=== PATIENT | female | born 1945 | race Caucasian/White ===

== ENCOUNTER 2017-03-24 07:41 | Day surgery (SDC) | payer MEDICARE, BC ==
[~2017-03-24 07:41] MED LIST: Propofol 200 MG/20 ML SDV ONE; fentaNYL 100 MCG/2 ML SDV ONE
[2017-03-24] MEDS ORDERED: Dextrose 5%-Lactated Ringers 1,000 ML IV SCH (08:30)
[2017-03-24] MEDS ORDERED: Ampicillin/Sulbactam Na 3 GM in Sodium Chloride 0.9% 100 ML IV ONE (09:30)
[2017-03-24 13:14] VITALS: BP 133/71
--- NOTE | 2017-03-30 12:54 | OR ---
DATE OF PROCEDURE: 03/24/2017 PREOPERATIVE DIAGNOSIS: History of colonic polyps. POSTOPERATIVE DIAGNOSIS: Single recurrent rectal polyp. OPERATION: Flexible colonoscopy with polypectomy by snare technique ([id number]). ANESTHESIA: IV sedation. INDICATION FOR PROCEDURE: A 71-year-old presenting for followup colonoscopy. She had a previous history of having had adenomatous colon polyps removed. Plan is to proceed with the colonoscopy with biopsies and/or polypectomy as indicated. Potential risks including bleeding and perforation were discussed, and the patient wishes to proceed. DESCRIPTION OF PROCEDURE: The patient was taken to the operating room and placed in a left lateral decubitus position. IV sedation was administered, after which the initial digital rectal exam was performed and it was unremarkable. Colonoscope was then passed into the rectum with retroflexion view revealed an uncomplicated hemorrhoidal columns. The scope was then eventually passed to the level of the cecum. The prep was fairly good with there only being a small amount of liquid stool present. The patient had no diverticula, no areas of colitis. The patient had one single fairly small polyp measuring about 3 mm located at 10 cm from the dentate line. This was encircled at its base with the snare and removed via the snare cautery technique and specimen for histological evaluation. Good hemostasis was noted at the polypectomy site. The procedure was then concluded. The patient was taken to the recovery room in satisfactory condition. There were no evident complications. The patient will be contacted regarding pathology report. If this is adenomatous polyp, a repeat colonoscopy probably warranted in about 2 years. Michael Nuñez MD /[id number]
== END 2017-03-24 11:50 | disposition home or self-care (01) ==
LOC: JP.SDS 07:41
PROVIDERS: ATTEND Surgery
DX: Z12.11 Encounter for screening for malignant neoplasm of colon (principal); D12.6 Benign neoplasm of colon, unspecified; K64.9 Unspecified hemorrhoids; Z86.010 Personal history of colon polyps
CPT/HCPCS: 45385; 88305; J0295; J2704; J3010; J7030; J7042

== ENCOUNTER 2019-03-22 07:07 | Day surgery (SDC) | payer MEDICARE, BC ==
[2019-03-22] MEDS ORDERED: Meropenem 500 MG in Sodium Chloride 0.9% 50 ML IV ONE (07:45)
[2019-03-22] MEDS ORDERED: Dextrose 5%-Lactated Ringers 1,000 ML IV SCH (07:45)
[2019-03-22] MEDS ORDERED: Propofol 200 MG/20 ML SDV ONE (09:04)
[2019-03-22] MEDS ORDERED: fentaNYL 100 MCG/2 ML SDV ONE (09:05)
[2019-03-22] MEDS ORDERED: Midazolam 1 MG/ML 2 ML SDV ONE (09:05)
[2019-03-22 11:01] VITALS: BP 136/84; PULSE 60
--- NOTE | 2019-03-25 00:46 | OR ---
DATE OF PROCEDURE: 03/22/2019 SURGEON: Michael Nuñez MD PREOPERATIVE DIAGNOSIS: History of colon polyps. POSTOPERATIVE DIAGNOSES: 1. Normal colonic examination. 2. History of colon polyps. OPERATIVE PROCEDURE: Flexible colonoscopy. ANESTHESIA: IV sedation. INDICATION FOR PROCEDURE: A 73-year-old female presenting for followup colonoscopy. She has history of colon polyps removed in the past. Plan is to proceed with a colonoscopy with biopsies and polypectomy as indicated. Potential risks including bleeding and perforation were discussed, and the patient wishes to proceed. DETAILS OF PROCEDURE: The patient was taken to the operating room and placed in a left lateral decubitus position. IV sedation was administered, after which the initial digital rectal exam was performed and was unremarkable. Colonoscope was then passed into the rectum with retroflexion revealing uncomplicated hemorrhoidal columns. The scope was eventually passed to the level of the cecum. At that level, no abnormalities were noted. There were no areas of colitis or diverticular disease, and no polyps or other signs of neoplasia. Scope was then withdrawn. The above findings reconfirmed, and the procedure concluded. The recommendation would be to repeat the colonoscopy in 5 years given the history of colon polyps. Michael Nuñez MD /[id number]
== END 2019-03-22 11:05 | disposition home or self-care (01) ==
LOC: JP.SDS 07:07
PROVIDERS: ATTEND Surgery
DX: Z12.11 Encounter for screening for malignant neoplasm of colon (principal); K64.9 Unspecified hemorrhoids; Z86.010 Personal history of colon polyps
CPT/HCPCS: G0121; J2250; J2704; J3010; J7042

== ENCOUNTER 2021-06-25 08:40 | Emergency (ER) | payer MEDICARE, BC ==
[2021-06-25] MEDS ORDERED: HYDROmorphone 1 MG/ML Syringe IM ONE (08:51)
--- NOTE | 2021-06-25 08:56 | EDM.PDOC ---
ED HPI GENERAL MEDICAL PROBLEM - General Chief Complaint: Upper Extremity Injury/Pain Stated Complaint: FELL, INJURED LT ARM Time Seen by Provider: 06/25/21 08:54 Source of Information: Reports: Patient, Family History Limitations: Reports: No Limitations - History of Present Illness INITIAL COMMENTS - FREE TEXT/NARRATIVE: 75-year-old female presents emergency department day complaint of left wrist pain, she injured herself last night when she missed a step fell forward on an outstretched hand unfortunately she could not come in last night because she did not have transportation so she presents this morning. She does have a significant amount of deformity as well as swelling over the area. She did not hit her head no loss of consciousness Left Wrist Pain Score (Numeric/FACES): 9 - Related Data Allergies Allergy/AdvReac Type Severity Reaction Status Date / Time No Known Allergies Allergy Verified 06/25/21 08:55 Home Meds: Home Meds Aspirin [Ecotrin] 81 mg PO DAILY 11/21/15 [History] Calcium Carbonate [Calcium] 600 mg PO BID 11/21/15 [History] Cholecalciferol (Vitamin D3) [Vitamin D3] 1,000 unit PO DAILY 11/21/15 [History] Cyclobenzaprine [Flexeril] 10 mg PO BEDTIME PRN 11/21/15 [History] Multivitamin [Multi-Day Vitamins] 1 each PO DAILY 11/21/15 [History] Venlafaxine [Effexor] 75 mg PO BIDMEALS 11/21/15 [History] traZODone 200 mg PO BEDTIME 11/21/15 [History] [place]-3 Fatty Acids/Fish Oil [Fish Oil 1,200 mg Softgel] 1,200 mg PO BID 03/19/17 [History] hydroCHLOROthiazide [Microzide] 12.5 mg PO DAILY 03/21/19 [History] Past Medical History HEENT History: Reports: Cataract, Hard of Hearing Gastrointestinal History: Reports: Colon Polyp, GERD SPECIAL POLICE History: Reports: Endometriosis, Musculoskeletal History: Reports: Arthritis, Back Pain, Chronic, Fibromyalgia, Osteoarthritis, Other (See Below) Other Musculoskeletal History: degenerative disc disease Neurological History: Reports: Other (See Below) Other Neuro History: spondilithias Psychiatric History: Reports: Anxiety, Depression Endocrine/Metabolic History: Reports: Obesity/BMI 30+ Hematologic History: Reports: Blood Transfusion(s), Other (See Below) Other Hematologic History: factor 5 Oncologic (Cancer) History: Reports: Breast Dermatologic History: Reports: Melanoma - Infectious Disease History Infectious Disease History: Reports: Chicken Pox, Measles, Mumps - Past Surgical History GI Surgical History: Reports: Appendectomy, Colonoscopy Female Surgical History: Reports: Breast Biopsy, Breast Reconstruction, Hysterectomy, Mastectomy, Salpingo-Oophorectomy Endocrine Surgical History: Reports: None Neurological Surgical History: Reports: Laminectomy, Spinal Fusion, Other (See Below) Musculoskeletal Surgical History: Reports: Knee Replacement, Shoulder Replacement, Shoulder Surgery Oncologic Surgical History: Reports: Biopsy of Breast, Mastectomy Dermatological Surgical History: Reports: Skin Biopsy Social & Family History - Family History Oncologic: Reports: Brain, Breast, Colon, Ovarian - Caffeine Use Caffeine Use: Reports: Coffee Review of Systems - Review of Systems Review Of Systems: See Below Musculoskeletal: Reports: Hand Pain Skin: Reports: Bruising Neurological: Reports: No Symptoms ED EXAM, GENERAL - Physical Exam Exam: See Below Free Text/Narrative:: Examination of the left wrist I do appreciate some deformity, there is edema and bruising over the wrist she has limited range of motion of the digits secondary to pain ,the radial pulse is difficult to appreciate due to swelling. Exam Limited By: No Limitations General Appearance: Alert, WD/WN, No Apparent Distress Respiratory/Chest: No Respiratory Distress ED TRAUMA EXTREMITY PROCEDURES - Joint Reduction Left Wrist Sedation: Conscious Sedation Pre-Procedure NV Status: Normal Post-Procedure NV Status: Normal Technique: Traction/Counter Traction Number of Attempts: 1 Post-Reduction Imaging: Completely Reduced, Fracture Seen Joint Reduction Complications: No - Splinting Left Upper Extremity Pre-Procedure NV Status: Normal Post-Procedure NV Status: Normal (This is a) Splint Material: Fiberglass Splint Design: Sugar Tong Applied & Form Fitted By: Provider, Nurse, Tech Provider Post-Splint Application NV Check: NV Status Normal, Good Position Complications: No Course - Vital Signs Last Recorded V/S: Last Vital Signs Temp 97.8 F 06/25/21 08:52 Pulse 80 06/25/21 10:49 Resp 12 06/25/21 10:49 BP 168/85 H 06/25/21 10:49 Pulse Ox 93 L 06/25/21 09:48 - Orders/Labs/Meds Orders: Active Orders 24 hr Category Date Time Status Fluoro Up To 1Hr [CR] Stat Exams 06/25/21 10:09 Ordered Sodium Chloride 0.9% [Normal Saline] 1,000 ml Med 06/25/21 10:15 Active IV ASDIRECTED Medication Orders Sodium Chloride (Normal Saline) 1,000 mls @ 125 mls/hr IV ASDIRECTED NOEL Last Admin: 06/25/21 10:41 Dose: 125 mls/hr Documented by: ALEX Meds: Medications Generic Name Dose Route Start Last Admin Trade Name Freq PRN Reason Stop Dose Admin Sodium Chloride 1,000 mls @ 125 mls/hr 06/25/21 10:15 06/25/21 10:41 Normal Saline IV 125 mls/hr ASDIRECTED NOEL Administration Discontinued Medications Generic Name Dose Route Start Last Admin Trade Name Freq PRN Reason Stop Dose Admin Hydromorphone HCl 0.5 mg 06/25/21 08:51 06/25/21 09:00 Hydromorphone 1 Mg/Ml Syringe IM 06/25/21 08:52 0.5 mg ONETIME ONE Administration Ondansetron HCl 4 mg 06/25/21 10:39 Ondansetron 4 Mg/2 Ml Sdv IVPUSH 06/25/21 10:40 ONETIME ONE Departure - Departure Time of Disposition: 11:09 Disposition: Home, Self-Care 01 Condition: Fair Clinical Impression: Left radial fracture Qualifiers: Encounter type: initial encounter Radius location: distal Fracture type: closed Fracture morphology: other fracture Qualified Code(s): S52.592A - Other fractures of lower end of left radius, initial encounter for closed fracture - Discharge Information Instructions: Radial Head Fracture Referrals: Ning Robertson CNM [Primary Care Provider] - Forms: ED Department Discharge Additional Instructions: Use ibuprofen for baseline pain control, use the hydrocodone for breakthrough pain continue to use the splint and sling as needed for comfort until reevaluated by orthopedics. Your orthopedic follow-up will be in about 1 week call return to the emergency department worsening of symptoms Sepsis Event Note (ED) - Focused Exam Vital Signs: Vital Signs Temp Pulse Resp BP Pulse Ox 06/25/21 10:49 80 12 168/85 H 06/25/21 09:48 82 16 171/83 H 93 L 06/25/21 08:52 97.8 F 81 18 177/93 H 92 L - My Orders Last 24 Hours: My Active Orders 06/25/21 10:09 Fluoro Up To 1Hr [CR] Stat 06/25/21 10:15 Sodium Chloride 0.9% [Normal Saline] 1,000 ml IV ASDIRECTED - Assessment/Plan Last 24 Hours: My Active Orders 06/25/21 10:09 Fluoro Up To 1Hr [CR] Stat 06/25/21 10:15 Sodium Chloride 0.9% [Normal Saline] 1,000 ml IV ASDIRECTED Plan: Assessment Acuity = acute Site and laterality = left distal radius fracture with impaction status post reduction Etiology = secondary to fall Manifestations = none Location of injury = Home Lab values = x-ray describes a fracture above Plan Called discussed the case with orthopedics on-call recommended reduction which was completed in the emergency department under anesthesia as sedation, placed i n a sugar tong splint will follow up with orthopedics in 1 week hydrocodone 5/325 1 tab p.o. 3 times daily as needed total #10 provided for pain control This note was dictated using [employer] voice recognition software please call with any questions on syntax or grammar.
[2021-06-25] MEDS ORDERED: Sodium Chloride 0.9% 1,000 ML IV SCH (10:15)
--- NOTE | 2021-06-25 10:22 | CR ---
Wrist Comp Min 3V Lt CLINICAL HISTORY: Fall, pain FINDINGS: There is a slightly displaced impaction fracture of the distal radius. There is ulnar carpal abutment. Patient has severe osteoarthritic changes. Bones are osteopenic. IMPRESSION: Distal radial impaction fracture Ulnar carpal abutment
[2021-06-25] MEDS ORDERED: Ondansetron 4 MG/2 ML SDV IVPUSH ONE (10:39)
[2021-06-25 10:50] VITALS: BP 168/85; PULSE 80
[2021-06-25] MEDS ORDERED: Propofol 200 MG/20 ML SDV ONE (11:04)
[2021-06-25] MEDS ORDERED: HYDROmorphone 1 MG/ML Syringe IVPUSH ONE (11:08)
== END 2021-06-25 11:50 | disposition home or self-care (01) ==
LOC: JP.ED 08:40
DX: S52.592A Other fractures of lower end of left radius, initial encounter for closed fracture (principal); E66.9 Obesity, unspecified; Z68.31 Body mass index [BMI] 31.0-31.9, adult; Z79.82 Long term (current) use of aspirin; Z79.899 Other long term (current) drug therapy; W10.9XXA Fall (on) (from) unspecified stairs and steps, initial encounter; Y92.009 Unspecified place in unspecified non-institutional (private) residence as the place of occurrence of the external cause
CPT/HCPCS: 25605; 73110; 76000; 96372; 96374; 96375; 99283; J1170; J2405; J2704; J7030

== ENCOUNTER 2021-07-03 09:20 | Day surgery (SDC) | payer MEDICARE, BC ==
[2021-07-03] MEDS ORDERED: Lactated Ringers 1,000 ML IV SCH (10:00)
[2021-07-03] MEDS ORDERED: Nozin Nasal Sanitizer NASBOTH ONE (10:00)
[2021-07-03] MEDS ORDERED: ceFAZolin 2 GM in Premix Bag 1 BAG IV ONE (10:30)
[2021-07-03] MEDS ORDERED: Bupivacaine 0.5% 50 ML MDV ONE (10:47)
[2021-07-03] MEDS ORDERED: fentaNYL 100 MCG/2 ML SDV ONE (12:39)
[2021-07-03] MEDS ORDERED: Lidocaine 0.5% 50 ML SDV ONE (13:02)
[2021-07-03] MEDS ORDERED: Propofol 200 MG/20 ML SDV ONE (13:02)
[2021-07-03] MEDS ORDERED: Bupivacaine 0.5% 50 ML MDV INJECT ONE (13:25)
[2021-07-03] MEDS ORDERED: Morphine 2 MG/ML SYRINGE IVPUSH ONE (13:40)
[2021-07-03] MEDS ORDERED: fentaNYL 100 MCG/2 ML SDV IVPUSH ONE (13:59)
[2021-07-03] MEDS ORDERED: Ketorolac 30 MG/ML SDV IM ONE (13:59)
[2021-07-03] MEDS ORDERED: Ketorolac 30 MG/ML SDV IVPUSH ONE (14:00)
[2021-07-03] MEDS ORDERED: Acetaminophen/HYDROcodone 325-5 MG Tab PO PRN (14:45)
[2021-07-03 15:12] VITALS: PULSE 91
[2021-07-03 15:15] VITALS: BP 157/78
--- NOTE | 2021-07-10 17:45 | OR ---
DATE OF PROCEDURE: 07/03/2021 SURGEON: Leander Brandon MD PREOPERATIVE DIAGNOSIS: Comminuted displaced left distal radius fracture. POSTOPERATIVE DIAGNOSIS: Comminuted displaced left distal radius fracture. PROCEDURE: Open reduction and internal fixation, left distal radius with intra-articular fracture with more than 2 fragments. CATH LAB: [facility] ANESTHESIA: Sandee block with sedation. INDICATIONS: Kymberly is a 75-year-old female, who sustained a fall onto her left wrist resulting in a displaced distal radius fracture. Had attempt at closed reduction in the emergency room and splinting. X-rays reveal persistent radial deviation with collapse of the intra-articular fragments. She now presents for open reduction and internal fixation. Risks, benefits, and potential complications were discussed. DESCRIPTION OF PROCEDURE: After adequate anesthesia was obtained, the patient was placed supine with a tourniquet about the upper arm. The arm was prepped and draped in a sterile fashion. A longitudinal incision was made over the volar aspect of the wrist, carried down through the subcutaneous tissues. Blunt dissection carried down to the fracture site. Pronator quadratus was elevated off the distal radius exposing the fracture. This was reduced and temporarily held in position with 0.062 K-wires. A Synthes variable angle distal radius plate was then secured using cortical screws proximally with good purchase and locking screws distally. Position of screws was confirmed using fluoroscopy, AP and lateral images. Wound was irrigated and closed with 2-0 Vicryl and a running 3-0 Monocryl. Steri- Strips were applied. Skin incision and fracture site were infiltrated with 0.5% Marcaine. Sterile dressing was applied with a well-padded volar splint. The patient tolerated the procedure well. There were no complications and taken from the operating room in stable condition. Leander Brandon MD /[id number]
== END 2021-07-03 15:50 | disposition home or self-care (01) ==
LOC: JP.SDS 09:20
PROVIDERS: ATTEND Specialist
DX: S52.572A Other intraarticular fracture of lower end of left radius, initial encounter for closed fracture (principal); I10 Essential (primary) hypertension; J44.9 Chronic obstructive pulmonary disease, unspecified; F41.9 Anxiety disorder, unspecified; F32.A Depression, unspecified; Z98.890 Other specified postprocedural states; W19.XXXA Unspecified fall, initial encounter
CPT/HCPCS: 25609; 36415; 76000; 80053; 85025; A9270; C1713; J0690; J1885; J2270; J2704; J3010; J3490; J7120

== ENCOUNTER 2022-02-02 00:48 | Inpatient (IN) | payer MEDICARE, BC ==
[2022-02-02] MEDS ORDERED: HYDROmorphone 0.5 MG/0.5 ML Syringe IVPUSH ONE (00:55)
[2022-02-02] MEDS: Sodium Chloride 0.9% 10 ML Syringe FLUSH PRN ×2 (01:31→03:53)
[2022-02-02] MEDS ORDERED: Ondansetron 4 MG/2 ML SDV IVPUSH ONE (03:47)
[2022-02-02] MEDS ORDERED: oxyCODONE 5 MG Tab PO PRN (04:05)
[2022-02-02] MEDS ORDERED: Acetaminophen 325 MG Tab PO PRN (04:05)
[2022-02-02] MEDS ORDERED: Sodium Chloride 0.9% 10 ML Syringe FLUSH PRN (04:05)
[2022-02-02] MEDS: HYDROmorphone 0.5 MG/0.5 ML Syringe IVPUSH PRN ×2 (04:09→09:41)
[2022-02-02] MEDS ORDERED: Pantoprazole 40 MG Delayed-Release Granules 1 Packet PO SCH (07:30)
[2022-02-02] MEDS ORDERED: Enoxaparin 30 MG/0.3 ML Syringe SUBCUT SCH (09:00)
[2022-02-02] MEDS: Ondansetron 4 MG/2 ML SDV IV PRN (09:35)
[2022-02-02] MEDS: Pantoprazole 40 MG Delayed-Release Granules 1 Packet PO SCH (09:53)
[2022-02-02] MEDS: Venlafaxine 75 MG Tab PO SCH ×2 (09:54→20:27)
[2022-02-02] MEDS: Aspirin 81 MG Tab.Chew PO SCH (09:54)
[2022-02-02] MEDS: Hydrochlorothiazide 12.5 MG Cap PO SCH (09:54)
[2022-02-02] MEDS: Promethazine 6.25 MG in Sodium Chloride 0.9% 50 ML IV PRN ×2 (11:02→11:13)
[2022-02-02] MEDS: Acetaminophen 500 MG Tab PO SCH ×3 (13:38→20:27)
[2022-02-02] MEDS: Morphine 2 MG/ML SYRINGE IVPUSH PRN (14:39)
[2022-02-02] MEDS: oxyCODONE 5 MG Tab PO PRN ×2 (18:20→22:20)
[2022-02-02] MEDS: Bisacodyl 5 MG Tab PO PRN (18:20)
[2022-02-02] MEDS: tiZANidine 2 MG Tab PO PRN (20:27)
[2022-02-02] MEDS: traZODone 50 MG Tab PO SCH (20:27)
[2022-02-03] MEDS: oxyCODONE 5 MG Tab PO PRN ×5 (02:08→21:12)
[2022-02-03] MEDS: Pantoprazole 40 MG Delayed-Release Granules 1 Packet PO SCH (07:13)
[2022-02-03] MEDS: Hydrochlorothiazide 12.5 MG Cap PO SCH (09:45)
[2022-02-03] MEDS: Aspirin 81 MG Tab.Chew PO SCH (09:45)
[2022-02-03] MEDS: Venlafaxine 75 MG Tab PO SCH ×2 (09:45→20:10)
[2022-02-03] MEDS: Enoxaparin 40 MG/0.4 ML Syringe SUBCUT SCH (09:46)
[2022-02-03] MEDS: Acetaminophen 500 MG Tab PO SCH ×3 (09:46→20:10)
[2022-02-03] MEDS: tiZANidine 2 MG Tab PO PRN ×2 (09:47→20:13)
[2022-02-03] MEDS: Morphine 2 MG/ML SYRINGE IVPUSH PRN ×2 (13:33→18:31)
[2022-02-03] MEDS: Bisacodyl 5 MG Tab PO PRN (20:03)
[2022-02-03] MEDS: traZODone 50 MG Tab PO SCH (20:03)
[2022-02-04] MEDS: oxyCODONE 5 MG Tab PO PRN ×5 (01:50→21:26)
[2022-02-04] MEDS: Pantoprazole 40 MG Tab.CR PO SCH (07:17)
[2022-02-04] MEDS: tiZANidine 2 MG Tab PO PRN (07:20)
[2022-02-04] MEDS: Venlafaxine 75 MG Tab PO SCH ×2 (09:08→21:26)
[2022-02-04] MEDS: Aspirin 81 MG Tab.Chew PO SCH (09:08)
[2022-02-04] MEDS: Hydrochlorothiazide 12.5 MG Cap PO SCH (09:08)
[2022-02-04] MEDS: Acetaminophen 500 MG Tab PO SCH ×3 (09:09→21:27)
[2022-02-04] MEDS: Enoxaparin 40 MG/0.4 ML Syringe SUBCUT SCH (09:09)
[2022-02-04] MEDS: Magnesium Hydroxide 400 MG/5 ML Susp 30 ML Cup PO PRN (11:29)
[2022-02-04] MEDS: Bisacodyl 5 MG Tab PO PRN (21:26)
[2022-02-04] MEDS: traZODone 50 MG Tab PO SCH (21:26)
[2022-02-04] MEDS: Bisacodyl 10 MG Supp RECTAL SCH (23:01)
[2022-02-05] MEDS: oxyCODONE 5 MG Tab PO PRN ×6 (01:11→22:41)
[2022-02-05] MEDS: Pantoprazole 40 MG Tab.CR PO SCH (07:40)
[2022-02-05] MEDS: Acetaminophen 500 MG Tab PO SCH ×3 (08:34→20:32)
[2022-02-05] MEDS: Venlafaxine 75 MG Tab PO SCH ×2 (08:35→20:33)
[2022-02-05] MEDS: Hydrochlorothiazide 12.5 MG Cap PO SCH (08:36)
[2022-02-05] MEDS: Aspirin 81 MG Tab.Chew PO SCH (08:36)
[2022-02-05] MEDS: Enoxaparin 40 MG/0.4 ML Syringe SUBCUT SCH (08:37)
[2022-02-05] MEDS: Magnesium Hydroxide 400 MG/5 ML Susp 30 ML Cup PO PRN (09:29)
[2022-02-05] MEDS ORDERED: Sodium Phosphate,Monobasic/Sodium Phosphate,Dibasic Enema 133 ML Bottle RECTAL ONE (10:11)
[2022-02-05] MEDS: Bisacodyl 10 MG Supp RECTAL SCH (10:11)
[2022-02-05] MEDS: Ondansetron 4 MG/2 ML SDV IV PRN (11:32)
[2022-02-05] MEDS: traZODone 50 MG Tab PO SCH (20:32)
[2022-02-06] MEDS: oxyCODONE 5 MG Tab PO PRN ×2 (05:53→11:24)
[2022-02-06] MEDS: Pantoprazole 40 MG Tab.CR PO SCH (07:39)
[2022-02-06] MEDS: Acetaminophen 500 MG Tab PO SCH ×2 (09:47→13:37)
[2022-02-06] MEDS: Venlafaxine 75 MG Tab PO SCH (09:47)
[2022-02-06] MEDS: Enoxaparin 40 MG/0.4 ML Syringe SUBCUT SCH (09:48)
[2022-02-06] MEDS: Hydrochlorothiazide 12.5 MG Cap PO SCH (09:48)
[2022-02-06] MEDS: Bisacodyl 10 MG Supp RECTAL SCH (09:48)
[2022-02-06] MEDS: Aspirin 81 MG Tab.Chew PO SCH (09:48)
[2022-02-06 11:21] VITALS: BP 118/62; PULSE 76
== END 2022-02-06 14:11 | disposition home health service (06) | DRG 556 ==
LOC: JP.ED 00:48 → JP.MS 04:05
PROVIDERS: ADMIT Internal Medicine; ATTEND Hospitalist
DX: M16.11 Unilateral primary osteoarthritis, right hip (principal); M25.551 Pain in right hip; D68.51 Activated protein C resistance; M16.12 Unilateral primary osteoarthritis, left hip; M16.0 Bilateral primary osteoarthritis of hip; W10.9XXA Fall (on) (from) unspecified stairs and steps, initial encounter; M17.11 Unilateral primary osteoarthritis, right knee; M51.36 Other intervertebral disc degeneration, lumbar region; R29.6 Repeated falls; M54.50 Low back pain, unspecified; G89.29 Other chronic pain; Z98.1 Arthrodesis status; Z20.822 Contact with and (suspected) exposure to COVID-19; Z85.820 Personal history of malignant melanoma of skin; I10 Essential (primary) hypertension; E66.9 Obesity, unspecified; Z79.82 Long term (current) use of aspirin; Z79.899 Other long term (current) drug therapy; Z90.49 Acquired absence of other specified parts of digestive tract; Z90.710 Acquired absence of both cervix and uterus; Z85.3 Personal history of malignant neoplasm of breast; H54.7 Unspecified visual loss; H91.90 Unspecified hearing loss, unspecified ear; K21.9 Gastro-esophageal reflux disease without esophagitis; M79.7 Fibromyalgia; F41.9 Anxiety disorder, unspecified; F32.A Depression, unspecified; Z96.659 Presence of unspecified artificial knee joint; Z96.619 Presence of unspecified artificial shoulder joint; Z68.28 Body mass index [BMI] 28.0-28.9, adult
CPT/HCPCS: 36415; 72100 ×2; 72192; 73502 ×2; 80048; 85025; 85610; 85730; 96374; 96375; 99283; 99285; J1170; J2405; J3490 ×2; U0002; 81001; 97110-GP; 97112-GP; 97116-GP; 97140-GP; 97162-GP; 97165-GO; 97530-GP; 97535-GO; A9270-GY; J1650; J2270; J2550

== ENCOUNTER 2022-02-18 09:08 | Emergency (ER) | payer MEDICARE, BC ==
[2022-02-18 09:13] VITALS: BP 117/98; PULSE 75
[2022-02-18] MEDS ORDERED: fentaNYL 50 MCG/ML SDV IVPUSH ONE (09:35)
[2022-02-18] MEDS ORDERED: Ketorolac 30 MG/ML SDV IVPUSH ONE (11:22)
== END 2022-02-18 14:03 ==
LOC: JP.ED 09:08
DX: M16.11 Unilateral primary osteoarthritis, right hip (principal); I10 Essential (primary) hypertension; J44.9 Chronic obstructive pulmonary disease, unspecified; K21.9 Gastro-esophageal reflux disease without esophagitis; E66.9 Obesity, unspecified; Z68.29 Body mass index [BMI] 29.0-29.9, adult; Z79.82 Long term (current) use of aspirin; Z79.899 Other long term (current) drug therapy; Z20.822 Contact with and (suspected) exposure to COVID-19
CPT/HCPCS: 36415; 80048; 85025; 85651; 96374; 96375; 99285-25; J1885; J3010; U0002

== ENCOUNTER 2022-02-24 06:47 | Inpatient (IN) | payer MEDICARE, BC ==
[2022-02-24] MEDS ORDERED: Midazolam 1 MG/ML 2 ML SDV ONE (07:25)
[2022-02-24] MEDS ORDERED: Propofol 200 MG/20 ML SDV ONE (07:26)
[2022-02-24] MEDS ORDERED: fentaNYL 100 MCG/2 ML SDV ONE ×2 (07:28→10:46)
[2022-02-24] MEDS ORDERED: Nozin Nasal Sanitizer NASBOTH SCH (07:30)
[2022-02-24] MEDS ORDERED: Lactated Ringers 1,000 ML IV SCH (08:00)
[2022-02-24 08:01] LABS: ESTIMATED GFR 94 mL/min (>60)
[2022-02-24] MEDS ORDERED: ceFAZolin 2 GM in Sodium Chloride 0.9% 50 ML IV ONE (08:30)
[2022-02-24] MEDS ORDERED: Dexamethasone 4 MG/ML SDV ONE (09:01)
[2022-02-24] MEDS ORDERED: Succinylcholine 200 MG/10 ML MDV ONE (09:01)
[2022-02-24] MEDS ORDERED: Rocuronium 50 MG/5 ML Vial ONE (09:01)
[2022-02-24] MEDS ORDERED: Ondansetron 4 MG/2 ML SDV ONE (09:01)
[2022-02-24] MEDS ORDERED: fentaNYL 250 MCG/5 ML SDV ONE (09:08)
[2022-02-24] MEDS ORDERED: Glycopyrrolate 0.2 MG/ML 5 ML MDV ONE (09:14)
[2022-02-24] MEDS ORDERED: Neostigmine Methylsulfate 1 MG/ML 5 ML Syringe ONE (09:14)
[2022-02-24] MEDS: Bupivacaine 0.5% 50 ML MDV ONE ×3 (09:40→10:30)
[2022-02-24] MEDS ORDERED: Lactated Ringers 1,000 ML ONE (10:22)
[2022-02-24] MEDS ORDERED: Ondansetron 4 MG/2 ML SDV IVPUSH PRN (10:40)
[2022-02-24] MEDS ORDERED: traMADol 50 MG Tab PO PRN (10:40)
[2022-02-24] MEDS ORDERED: Acetaminophen 500 MG Tab PO SCH (12:00)
[2022-02-24] MEDS: oxyCODONE 5 MG Tab PO PRN ×3 (12:06→21:01)
[2022-02-24] MEDS: HYDROmorphone 0.5 MG/0.5 ML Syringe IVPUSH PRN ×2 (12:37→22:27)
[2022-02-24] MEDS: tiZANidine 2 MG Tab PO PRN ×2 (13:09→21:00)
[2022-02-24] MEDS: Enoxaparin 30 MG/0.3 ML Syringe SUBCUT SCH (13:10)
[2022-02-24] MEDS: Acetaminophen 325 MG Tab PO SCH ×2 (13:10→18:13)
[2022-02-24] MEDS: ceFAZolin 1 GM in Premix Bag 1 BAG IV SCH ×2 (14:55→21:00)
[2022-02-24] MEDS: Venlafaxine 75 MG Tab PO SCH (16:29)
[2022-02-24] MEDS: Sodium Chloride 0.9% 1,000 ML IV SCH (17:56)
[2022-02-24] MEDS: Ketorolac 30 MG/ML SDV IVPUSH SCH (18:12)
[2022-02-24] MEDS: Docusate Sodium 100 MG Cap PO SCH (20:58)
[2022-02-24] MEDS: traZODone 50 MG Tab PO SCH (20:58)
[2022-02-24] MEDS: Nozin Nasal Sanitizer NASBOTH SCH (20:59)
[2022-02-25] MEDS: Acetaminophen 325 MG Tab PO SCH ×5 (00:57→23:48)
[2022-02-25] MEDS: Ketorolac 30 MG/ML SDV IVPUSH SCH (01:00)
[2022-02-25] MEDS: oxyCODONE 5 MG Tab PO PRN ×5 (01:07→21:11)
[2022-02-25] MEDS: Sodium Chloride 0.9% 1,000 ML IV SCH ×2 (02:38→19:13)
[2022-02-25] MEDS: tiZANidine 2 MG Tab PO PRN ×2 (04:30→10:31)
[2022-02-25] MEDS: ceFAZolin 1 GM in Premix Bag 1 BAG IV SCH (05:51)
[2022-02-25] MEDS: Pantoprazole 40 MG Tab.CR PO SCH (08:03)
[2022-02-25] MEDS: Venlafaxine 75 MG Tab PO SCH ×2 (08:03→16:36)
[2022-02-25] MEDS: Nozin Nasal Sanitizer NASBOTH SCH ×2 (08:03→20:19)
[2022-02-25] MEDS: Docusate Sodium 100 MG Cap PO SCH ×2 (08:03→20:19)
[2022-02-25] MEDS ORDERED: Hydrochlorothiazide 12.5 MG Cap PO SCH (09:00)
[2022-02-25] MEDS ORDERED: Enoxaparin 30 MG/0.3 ML Syringe SUBCUT SCH (09:00)
[2022-02-25] MEDS: Enoxaparin 30 MG/0.3 ML Syringe SUBCUT SCH (14:17)
[2022-02-25] MEDS ORDERED: Glycerin 2.1 GM Supp RECTAL PRN (16:12)
[2022-02-25] MEDS: Polyethylene Glycol 3350 Powder 17 GM Packet PO PRN (16:35)
[2022-02-25] MEDS ORDERED: LORazepam 2 MG/ML SDV IVPUSH PRN (16:41)
[2022-02-25] MEDS: hydrOXYzine HCl 25 MG Tab PO PRN (17:14)
[2022-02-25] MEDS: Celecoxib 200 MG Cap PO SCH (20:19)
[2022-02-25] MEDS: traZODone 50 MG Tab PO SCH (21:07)
[2022-02-26] MEDS: oxyCODONE 5 MG Tab PO PRN ×5 (01:17→22:12)
[2022-02-26] MEDS: Sodium Chloride 0.9% 1,000 ML IV SCH (03:17)
[2022-02-26] MEDS: Acetaminophen 325 MG Tab PO SCH ×3 (05:34→17:02)
[2022-02-26] MEDS: Pantoprazole 40 MG Tab.CR PO SCH (08:05)
[2022-02-26] MEDS: Celecoxib 200 MG Cap PO SCH ×2 (08:06→20:40)
[2022-02-26] MEDS: Hydrochlorothiazide 12.5 MG Cap PO SCH (08:06)
[2022-02-26] MEDS: Nozin Nasal Sanitizer NASBOTH SCH ×2 (08:06→20:40)
[2022-02-26] MEDS: Venlafaxine 75 MG Tab PO SCH ×2 (08:06→17:02)
[2022-02-26] MEDS: Docusate Sodium 100 MG Cap PO SCH ×2 (08:06→20:40)
[2022-02-26] MEDS: Enoxaparin 30 MG/0.3 ML Syringe SUBCUT SCH (11:41)
[2022-02-26] MEDS: tiZANidine 2 MG Tab PO PRN (18:12)
[2022-02-26] MEDS: hydrOXYzine HCl 25 MG Tab PO PRN (19:13)
[2022-02-26] MEDS: Polyethylene Glycol 3350 Powder 17 GM Packet PO PRN (19:13)
[2022-02-26] MEDS ORDERED: LORazepam 0.5 MG Tab PO ONE (20:25)
[2022-02-26] MEDS: traZODone 50 MG Tab PO SCH (20:41)
[2022-02-27] MEDS: Acetaminophen 325 MG Tab PO SCH ×4 (00:13→17:38)
[2022-02-27] MEDS: oxyCODONE 5 MG Tab PO PRN ×3 (03:31→20:23)
[2022-02-27] MEDS: Docusate Sodium 100 MG Cap PO SCH ×2 (08:27→20:29)
[2022-02-27] MEDS: Venlafaxine 75 MG Tab PO SCH ×2 (08:27→17:38)
[2022-02-27] MEDS: Pantoprazole 40 MG Tab.CR PO SCH (08:27)
[2022-02-27] MEDS: Hydrochlorothiazide 12.5 MG Cap PO SCH (08:27)
[2022-02-27] MEDS: Nozin Nasal Sanitizer NASBOTH SCH ×2 (08:27→20:28)
[2022-02-27] MEDS: Celecoxib 200 MG Cap PO SCH ×2 (08:27→20:28)
[2022-02-27] MEDS: Polyethylene Glycol 3350 Powder 17 GM Packet PO PRN (08:28)
[2022-02-27] MEDS: Enoxaparin 30 MG/0.3 ML Syringe SUBCUT SCH (11:51)
[2022-02-27] MEDS: traZODone 50 MG Tab PO SCH (20:29)
[2022-02-27] MEDS: tiZANidine 2 MG Tab PO PRN (21:50)
[2022-02-27] MEDS: hydrOXYzine HCl 25 MG Tab PO PRN (21:50)
[2022-02-28] MEDS: Acetaminophen 325 MG Tab PO SCH ×4 (00:34→13:27)
[2022-02-28] MEDS: oxyCODONE 5 MG Tab PO PRN ×3 (00:46→15:03)
[2022-02-28] MEDS: Pantoprazole 40 MG Tab.CR PO SCH (07:20)
[2022-02-28] MEDS: Nozin Nasal Sanitizer NASBOTH SCH (09:08)
[2022-02-28] MEDS: Venlafaxine 75 MG Tab PO SCH (09:08)
[2022-02-28] MEDS: Celecoxib 200 MG Cap PO SCH (09:09)
[2022-02-28] MEDS: Docusate Sodium 100 MG Cap PO SCH (09:09)
[2022-02-28] MEDS: Hydrochlorothiazide 12.5 MG Cap PO SCH (09:09)
[2022-02-28 14:53] VITALS: BP 125/63; PULSE 77
[2022-02-28] MEDS: Enoxaparin 30 MG/0.3 ML Syringe SUBCUT SCH (15:04)
== END 2022-02-28 15:20 | disposition home health service (06) | DRG 470 ==
LOC: JP.SDS 06:47 → JP.MS 10:40 → JP.SDS 02-25 08:04
PROVIDERS: ADMIT Specialist; ATTEND Specialist
PROC: 0SR901A Replacement of Right Hip Joint with Metal Synthetic Substitute, Uncemented, Open Approach (ICD-10-PCS; principal; 2022-02-24)
DX: M16.11 Unilateral primary osteoarthritis, right hip (principal); M87.9 Osteonecrosis, unspecified; I10 Essential (primary) hypertension; J44.9 Chronic obstructive pulmonary disease, unspecified; F41.9 Anxiety disorder, unspecified; F32.A Depression, unspecified; D64.9 Anemia, unspecified; Z20.822 Contact with and (suspected) exposure to COVID-19; Z85.3 Personal history of malignant neoplasm of breast; Z85.820 Personal history of malignant melanoma of skin
CPT/HCPCS: 27130; 36415; 72170; 72170-26; 80053; 85027; 88304; 88311; 93005; 93010; 97110-GP; 97140-GP; 97161-GP; 97165-GO; 97530-GP; 97535-GO; 97535-GP; 99024; A9270-GY; C1713; C1776; J0330; J0690; J1100; J1170; J1650; J1885; J2060; J2250; J2405; J2704; J2710; J3010; J3490; J7030; J7120; U0002

== ENCOUNTER 2022-08-25 06:33 | Day surgery (SDC) | payer MEDICARE, BC ==
[2022-08-25] MEDS ORDERED: Lactated Ringers 500 ML IV SCH (07:00)
[2022-08-25] MEDS ORDERED: Lactated Ringers 1,000 ML IV SCH (07:00)
[2022-08-25] MEDS ORDERED: fentaNYL 100 MCG/2 ML SDV ONE (07:09)
[2022-08-25] MEDS ORDERED: Propofol 200 MG/20 ML SDV ONE (07:09)
[2022-08-25 09:02] VITALS: BP 135/84; PULSE 71
== END 2022-08-25 09:08 | disposition home or self-care (01) ==
LOC: JP.SDS 06:33
PROVIDERS: ATTEND Student in an Organized Health Care Education/Training Program
DX: K29.50 Unspecified chronic gastritis without bleeding (principal); K31.7 Polyp of stomach and duodenum; K44.9 Diaphragmatic hernia without obstruction or gangrene; K20.90 Esophagitis, unspecified without bleeding; I10 Essential (primary) hypertension; Z98.1 Arthrodesis status
CPT/HCPCS: 43239; J2704; J3010; J7120

== ENCOUNTER 2022-09-10 09:45 | Inpatient (IN) | payer MEDICARE, BC ==
[2022-09-10] MEDS: Sodium Chloride 0.9% 1,000 ML IV SCH ×2 (10:37→12:57)
[2022-09-10] MEDS ORDERED: HYDROmorphone 0.5 MG/0.5 ML Syringe IVPUSH ONE (10:40)
[2022-09-10 11:10] LABS: ESTIMATED GFR 94 mL/min (>60)
[2022-09-10] MEDS ORDERED: Iopamidol 612 MG/ML 30 ML SDV PO ONE (11:45)
[2022-09-10] MEDS ORDERED: Sodium Chloride 0.9% 50 ML IV SCH ×2 (11:45→12:15)
[2022-09-10] MEDS ORDERED: Sodium Chloride 0.9% 10 ML Syringe FLUSH PRN ×2 (11:45→12:04)
[2022-09-10] MEDS ORDERED: Iopamidol 612 MG/ML 100 ML Bottle IV PRN (12:04)
[2022-09-10] MEDS ORDERED: HYDROmorphone 1 MG/ML Syringe IVPUSH ONE (12:29)
[2022-09-10] MEDS ORDERED: Alum Hydrox/Mag Hydrox/Simeth 15 ML, Lidocaine 2% 15 ML PO ONE ×2 (12:42)
[2022-09-10] MEDS ORDERED: Sodium Chloride 0.9% 1,000 ML IV SCH (12:45)
[2022-09-10] MEDS ORDERED: Pantoprazole 40 MG Vial IVPUSH SCH (12:45)
[2022-09-10] MEDS ORDERED: cefTRIAXone 2 GM in Sodium Chloride 0.9% 50 ML IV ONE (12:54)
[2022-09-10 14:45] LABS: CORONAVIRUS COVID-19 NAA NEGATIVE (NEGATIVE)
[2022-09-10] MEDS ORDERED: Ondansetron 4 MG/2 ML SDV IVPUSH PRN (14:53)
[2022-09-10] MEDS ORDERED: Enoxaparin 40 MG/0.4 ML Syringe SUBCUT ONE (15:15)
[2022-09-10] MEDS: Dextrose 5%-Lactated Ringers 1,000 ML IV SCH (15:23)
[2022-09-10] MEDS ORDERED: Naloxone 0.4 MG/ML SDV IV PRN (16:00)
[2022-09-10] MEDS: HYDROmorphone/Normal Saline 6 MG/30 ML PCA Vial IV PRN (16:36)
[2022-09-11 06:31] LABS: ESTIMATED GFR 94 mL/min (>60)
[2022-09-11] MEDS: HYDROmorphone/Normal Saline 6 MG/30 ML PCA Vial IV PRN (07:55)
[2022-09-11] MEDS ORDERED: Lidocaine 1% with EPINEPHrine 1:100,000 50 ML MDV ONE (09:59)
[2022-09-11] MEDS ORDERED: Bupivacaine 0.5% 50 ML MDV ONE (09:59)
[2022-09-11] MEDS ORDERED: Neostigmine Methylsulfate 1 MG/ML 5 ML Syringe ONE (10:29)
[2022-09-11] MEDS ORDERED: Lidocaine 2% 5 ML SDV ONE (10:29)
[2022-09-11] MEDS ORDERED: Propofol 200 MG/20 ML SDV ONE (10:29)
[2022-09-11] MEDS ORDERED: Succinylcholine 200 MG/10 ML MDV ONE (10:29)
[2022-09-11] MEDS ORDERED: Dexamethasone 4 MG/ML SDV ONE (10:29)
[2022-09-11] MEDS ORDERED: fentaNYL 250 MCG/5 ML SDV ONE (10:29)
[2022-09-11] MEDS ORDERED: Rocuronium 50 MG/5 ML Vial ONE (10:29)
[2022-09-11] MEDS ORDERED: Ondansetron 4 MG/2 ML SDV ONE (10:29)
[2022-09-11] MEDS ORDERED: cefOXitin 2 GM in Sodium Chloride 0.9% 50 ML IV ONE (10:30)
[2022-09-11] MEDS ORDERED: Ketamine 16 MG in Sodium Chloride 0.9% 19.84 ML IV SCH (10:30)
[2022-09-11] MEDS ORDERED: Ketamine 500 MG/5 ML MDV IV SCH (10:30)
[2022-09-11] MEDS ORDERED: Ropivacaine 40 ML, dexAMETHasone 8 MG, EPINEPHrine 0.4 MG, Sodium Chloride 0.9% 37.6 ML NERVRT SCH ×4 (10:30)
[2022-09-11] MEDS: Dextrose 5%-Lactated Ringers 1,000 ML IV SCH (10:41)
[2022-09-11] MEDS ORDERED: ePHEDrine 50 MG/ML SDV ONE (11:33)
[2022-09-11] MEDS ORDERED: Ketorolac 30 MG/ML SDV ONE (13:00)
[2022-09-11] MEDS ORDERED: cefTRIAXone 2 GM in Sodium Chloride 0.9% 50 ML IV SCH (13:00)
[2022-09-11] MEDS ORDERED: Pantoprazole 40 MG Vial IVPUSH SCH (13:00)
[2022-09-11] MEDS ORDERED: fentaNYL 100 MCG/2 ML SDV ONE (13:15)
[2022-09-11] MEDS ORDERED: diphenhydrAMINE 50 MG/ML SDV IV PRN (14:29)
[2022-09-11] MEDS ORDERED: Cyclobenzaprine 10 MG Tab PO PRN ×2 (14:30→14:39)
[2022-09-11] MEDS ORDERED: Labetalol 20 MG/4 ML Syringe IVPUSH PRN (15:00)
[2022-09-11] MEDS ORDERED: Ondansetron 4 MG/2 ML SDV IVPUSH PRN (15:00)
[2022-09-11] MEDS ORDERED: Metoclopramide 10 MG/2 ML SDV IVPUSH PRN (15:00)
[2022-09-11] MEDS ORDERED: Acetaminophen 500 MG Tab PO PRN (15:00)
[2022-09-11] MEDS: Acetaminophen 500 MG Tab PO SCH ×2 (15:10→22:27)
[2022-09-11] MEDS: MVI, Adult with Vitamin K 10 ML, Thiamine 200 MG, Zinc/Copper/Manganese/Selenium 1 ML i... IV SCH ×4 (17:23)
[2022-09-11] MEDS: hydrOXYzine HCl 50 MG/ML SDV IM PRN (17:23)
[2022-09-11] MEDS: ceFAZolin 2 GM in Sodium Chloride 0.9% 50 ML IV SCH (17:23)
[2022-09-11] MEDS: Pantoprazole 40 MG Vial IVPUSH SCH (17:29)
[2022-09-11] MEDS: LORazepam 2 MG/ML SDV IVPUSH PRN (18:12)
[2022-09-11] MEDS: tiZANidine 2 MG Tab PO PRN (20:32)
[2022-09-11] MEDS: Venlafaxine 75 MG Cap.ER PO SCH (20:32)
[2022-09-11] MEDS: Celecoxib 200 MG Cap PO SCH (20:32)
[2022-09-11] MEDS: traZODone 50 MG Tab PO SCH (20:33)
[2022-09-11] MEDS ORDERED: Albuterol/Ipratropium 3.0-0.5 MG/3 ML Neb Soln NEB PRN (20:51)
[2022-09-11] MEDS: traMADol 50 MG Tab PO PRN (23:11)
[2022-09-12] MEDS: ceFAZolin 2 GM in Sodium Chloride 0.9% 50 ML IV SCH ×2 (00:31→07:49)
[2022-09-12] MEDS: hydrOXYzine HCl 50 MG/ML SDV IM PRN (01:05)
[2022-09-12] MEDS: Dextrose 5%-Lactated Ringers 1,000 ML IV SCH ×3 (02:52→10:38)
[2022-09-12] MEDS ORDERED: Iopamidol 612 MG/ML 30 ML SDV PO ONE (03:52)
[2022-09-12 05:16] LABS: ESTIMATED GFR 90 mL/min (>60)
[2022-09-12] MEDS: Acetaminophen 500 MG Tab PO SCH ×3 (05:29→21:06)
[2022-09-12] MEDS: HYDROmorphone 0.5 MG/0.5 ML Syringe IVPUSH PRN ×6 (08:51→22:28)
[2022-09-12] MEDS: Venlafaxine 75 MG Cap.ER PO SCH ×2 (10:53→21:05)
[2022-09-12] MEDS: Celecoxib 200 MG Cap PO SCH ×2 (10:53→21:05)
[2022-09-12] MEDS: Aspirin 81 MG Tab.EC PO SCH (10:54)
[2022-09-12] MEDS: Hydrochlorothiazide 12.5 MG Cap PO SCH (10:54)
[2022-09-12] MEDS: MVI, Adult with Vitamin K 10 ML, Thiamine 200 MG, Zinc/Copper/Manganese/Selenium 1 ML i... IV SCH ×4 (15:53)
[2022-09-12] MEDS: Pantoprazole 40 MG Vial IVPUSH SCH (15:53)
[2022-09-12] MEDS: traZODone 50 MG Tab PO SCH (21:06)
[2022-09-13] MEDS: HYDROmorphone 0.5 MG/0.5 ML Syringe IVPUSH PRN ×6 (01:43→21:39)
[2022-09-13] MEDS: Dextrose 5%-Lactated Ringers 1,000 ML IV SCH ×2 (01:46→14:30)
[2022-09-13] MEDS: hydrOXYzine HCl 50 MG/ML SDV IM PRN (03:42)
[2022-09-13 04:49] LABS: ESTIMATED GFR 98 mL/min (>60)
[2022-09-13] MEDS: Acetaminophen 500 MG Tab PO SCH ×3 (05:18→23:29)
[2022-09-13] MEDS: Hydrochlorothiazide 12.5 MG Cap PO SCH (08:03)
[2022-09-13] MEDS: Venlafaxine 75 MG Cap.ER PO SCH ×2 (08:27→23:28)
[2022-09-13] MEDS: Aspirin 81 MG Tab.EC PO SCH (08:27)
[2022-09-13] MEDS: Celecoxib 200 MG Cap PO SCH ×2 (08:27→23:28)
[2022-09-13] MEDS ORDERED: Cyanocobalamin (Vitamin B12) 1,000 MCG/ML SDV IM ONE (09:00)
[2022-09-13] MEDS ORDERED: cefTRIAXone 2 GM in Sodium Chloride 0.9% 50 ML IV SCH (10:00)
[2022-09-13] MEDS ORDERED: Enoxaparin 40 MG/0.4 ML Syringe SUBCUT ONE (10:00)
[2022-09-13] MEDS: cefTRIAXone 2 GM in Sodium Chloride 0.9% 50 ML IV SCH (10:48)
[2022-09-13] MEDS: Azithromycin 125 MG in Sodium Chloride 0.9% 100 ML IV SCH ×2 (11:48→23:35)
[2022-09-13] MEDS: LORazepam 2 MG/ML SDV IVPUSH PRN ×3 (13:50→21:39)
[2022-09-13] MEDS: Pantoprazole 40 MG Vial IVPUSH SCH (16:33)
[2022-09-13] MEDS: traZODone 50 MG Tab PO SCH (23:29)
[2022-09-14] MEDS: LORazepam 2 MG/ML SDV IVPUSH PRN ×4 (01:37→21:25)
[2022-09-14] MEDS: HYDROmorphone 0.5 MG/0.5 ML Syringe IVPUSH PRN ×7 (01:37→23:24)
[2022-09-14] MEDS: Potassium Chloride 10 MEQ in Premix Bag 1 BAG IV SCH ×4 (06:00→10:17)
[2022-09-14] MEDS: Acetaminophen 500 MG Tab PO SCH ×3 (06:00→21:46)
[2022-09-14] MEDS: Dextrose 5%-Lactated Ringers 1,000 ML IV SCH (06:02)
[2022-09-14] MEDS: Hydrochlorothiazide 12.5 MG Cap PO SCH ×2 (07:41→09:36)
[2022-09-14] MEDS: Venlafaxine 75 MG Cap.ER PO SCH ×3 (07:41→20:12)
[2022-09-14] MEDS ORDERED: Potassium Phos in 0.9 % NaCl 15 MMOL in Premix Bag 1 BAG IV SCH ×4 (09:00→12:00)
[2022-09-14] MEDS: Aspirin 81 MG Tab.EC PO SCH (09:35)
[2022-09-14] MEDS: Celecoxib 200 MG Cap PO SCH ×2 (09:36→20:12)
[2022-09-14] MEDS: cefTRIAXone 2 GM in Sodium Chloride 0.9% 50 ML IV SCH (11:31)
[2022-09-14] MEDS: Azithromycin 125 MG in Sodium Chloride 0.9% 100 ML IV SCH ×2 (12:22→23:29)
[2022-09-14] MEDS: Potassium Phos in 0.9 % NaCl 15 MMOL in Premix Bag 1 BAG IV SCH ×6 (13:41→19:54)
[2022-09-14] MEDS ORDERED: Bisacodyl 10 MG Supp RECTAL PRN (15:54)
[2022-09-14] MEDS: Pantoprazole 40 MG Vial IVPUSH SCH (16:29)
[2022-09-14] MEDS: traZODone 50 MG Tab PO SCH (20:12)
[2022-09-15] MEDS: Potassium Phos in 0.9 % NaCl 15 MMOL in Premix Bag 1 BAG IV SCH ×2 (00:31)
[2022-09-15] MEDS: LORazepam 2 MG/ML SDV IVPUSH PRN ×2 (02:11→19:43)
[2022-09-15] MEDS ORDERED: Iopamidol 612 MG/ML 30 ML SDV PO STA (02:58)
[2022-09-15] MEDS: Acetaminophen 500 MG Tab PO SCH ×3 (05:28→21:51)
[2022-09-15 05:30] LABS: ESTIMATED GFR 98 mL/min (>60)
[2022-09-15] MEDS ORDERED: methylPREDNISolone Sodium Succinate 40 MG/1 ML SDV IVPUSH ONE (06:44)
[2022-09-15] MEDS: HYDROmorphone 0.5 MG/0.5 ML Syringe IVPUSH PRN ×5 (07:29→23:19)
[2022-09-15] MEDS ORDERED: methylPREDNISolone Sodium Succinate 125 MG/2 ML SDV IVPUSH ONE (08:00)
[2022-09-15] MEDS: Potassium Chloride 10 MEQ in Premix Bag 1 BAG IV SCH ×4 (09:06→14:20)
[2022-09-15] MEDS: Celecoxib 200 MG Cap PO SCH ×2 (09:43→20:30)
[2022-09-15] MEDS: Aspirin 81 MG Tab.EC PO SCH (09:43)
[2022-09-15] MEDS: Venlafaxine 75 MG Cap.ER PO SCH ×2 (09:43→20:32)
[2022-09-15] MEDS: Hydrochlorothiazide 12.5 MG Cap PO SCH (09:45)
[2022-09-15] MEDS: cefTRIAXone 2 GM in Sodium Chloride 0.9% 50 ML IV SCH (10:20)
[2022-09-15] MEDS: Azithromycin 125 MG in Sodium Chloride 0.9% 100 ML IV SCH ×2 (11:04→22:09)
[2022-09-15] MEDS ORDERED: Pantoprazole 40 MG Tab.CR PO SCH (11:30)
[2022-09-15] MEDS: methylPREDNISolone Sodium Succinate 125 MG/2 ML SDV IVPUSH SCH ×2 (14:25→20:30)
[2022-09-15] MEDS: Pantoprazole 40 MG Vial IVPUSH SCH (16:37)
[2022-09-15] MEDS: Dextrose 5%-Lactated Ringers 1,000 ML IV SCH (17:05)
[2022-09-15] MEDS: traZODone 50 MG Tab PO SCH (20:32)
[2022-09-16] MEDS: methylPREDNISolone Sodium Succinate 125 MG/2 ML SDV IVPUSH SCH ×2 (01:09→08:42)
[2022-09-16] MEDS: traMADol 50 MG Tab PO PRN ×2 (02:51→10:29)
[2022-09-16] MEDS: Dextrose 5%-Lactated Ringers 1,000 ML IV SCH (04:08)
[2022-09-16] MEDS: Acetaminophen 500 MG Tab PO SCH (05:24)
[2022-09-16 05:53] LABS: ESTIMATED GFR 90 mL/min (>60)
[2022-09-16 06:48] VITALS: BP 154/88; PULSE 71
[2022-09-16] MEDS: Celecoxib 200 MG Cap PO SCH (08:43)
[2022-09-16] MEDS: Hydrochlorothiazide 12.5 MG Cap PO SCH (08:44)
[2022-09-16] MEDS: Venlafaxine 75 MG Cap.ER PO SCH (08:44)
[2022-09-16] MEDS: Aspirin 81 MG Tab.EC PO SCH (08:44)
[2022-09-16] MEDS: tiZANidine 2 MG Tab PO PRN (08:57)
[2022-09-16] MEDS: cefTRIAXone 2 GM in Sodium Chloride 0.9% 50 ML IV SCH (11:06)
== END 2022-09-16 11:00 | disposition home or self-care (01) | DRG 327 ==
LOC: JP.ED 09:45 → JP.MS 14:53
PROVIDERS: ADMIT Student in an Organized Health Care Education/Training Program; ATTEND Surgery
PROC: 0BUT4JZ Supplement Diaphragm with Synthetic Substitute, Percutaneous Endoscopic Approach (ICD-10-PCS; principal; 2022-09-11)
PROC: 0DQ64ZZ Repair Stomach, Percutaneous Endoscopic Approach (ICD-10-PCS; 2022-09-11)
DX: K31.89 Other diseases of stomach and duodenum (principal); D68.51 Activated protein C resistance; N39.0 Urinary tract infection, site not specified; E78.5 Hyperlipidemia, unspecified; K44.9 Diaphragmatic hernia without obstruction or gangrene; I10 Essential (primary) hypertension; J44.9 Chronic obstructive pulmonary disease, unspecified; F41.9 Anxiety disorder, unspecified; G89.29 Other chronic pain; E78.00 Pure hypercholesterolemia, unspecified; K21.9 Gastro-esophageal reflux disease without esophagitis; M19.90 Unspecified osteoarthritis, unspecified site; M79.7 Fibromyalgia; M54.9 Dorsalgia, unspecified; F32.A Depression, unspecified; R13.10 Dysphagia, unspecified; Z96.649 Presence of unspecified artificial hip joint; E86.0 Dehydration; Z96.619 Presence of unspecified artificial shoulder joint; Z85.3 Personal history of malignant neoplasm of breast; Z85.820 Personal history of malignant melanoma of skin; Z79.82 Long term (current) use of aspirin; Z79.899 Other long term (current) drug therapy; Z98.49 Cataract extraction status, unspecified eye; Z86.010 Personal history of colon polyps; Z98.890 Other specified postprocedural states; Z90.49 Acquired absence of other specified parts of digestive tract; Z90.710 Acquired absence of both cervix and uterus; Z90.721 Acquired absence of ovaries, unilateral; Z90.10 Acquired absence of unspecified breast and nipple; Z98.1 Arthrodesis status
CPT/HCPCS: 0241U; 36415; 71045; 71045-26; 71046; 71046-26; 74018; 74018-26; 74177; 74177-26; 74240; 74240-26; 80048; 80053; 81001; 83735; 83880; 84100; 85025; 85027; 85610; 87086; 87088; 87186; 88305; 93005; 93010; 94640; 96361; 96365; 96372; 96375; 96376; 97110-GP; 97161-GP; 97530-GP; 99284; 99285-25; A9270-GY; C1713; C1781; C9113; J0171; J0330; J0456; J0690; J0694; J0696; J1100; J1170; J1200; J1650; J1885; J2060; J2310; J2405; J2704; J2710; J2795; J2930; J3010; J3410; J3411; J3420; J3480; J3490; J7030; J7121; J7620; Q9967

== ENCOUNTER 2022-09-19 10:45 | Emergency (ER) | payer MEDICARE, BC ==
[2022-09-19 11:09] VITALS: BP 143/83; PULSE 63
[2022-09-19] MEDS ORDERED: Sodium Chloride 0.9% 10 ML Syringe FLUSH PRN ×2 (11:34→12:30)
[2022-09-19] MEDS ORDERED: methylPREDNISolone Sodium Succinate 125 MG/2 ML SDV IM ONE (11:42)
[2022-09-19] MEDS ORDERED: Sodium Chloride 0.9% 500 ML IV ONE (12:30)
[2022-09-19] MEDS ORDERED: Potassium Chloride 10 MEQ in Premix Bag 1 BAG IV SCH (13:00)
== END 2022-09-19 12:31 | disposition home or self-care (01) ==
LOC: JP.ED 10:45
DX: R13.19 Other dysphagia (principal); E86.0 Dehydration; E87.6 Hypokalemia; K21.9 Gastro-esophageal reflux disease without esophagitis; I10 Essential (primary) hypertension; J44.9 Chronic obstructive pulmonary disease, unspecified; E66.9 Obesity, unspecified; Z68.29 Body mass index [BMI] 29.0-29.9, adult; Z86.16 Personal history of COVID-19
CPT/HCPCS: 36415; 80048; 85025; 85610; 96372; 99283; 99284; J2930; J3490

== ENCOUNTER 2022-09-24 12:48 | Inpatient (IN) | payer MEDICARE, BC ==
[2022-09-24] MEDS ORDERED: Ondansetron 4 MG/2 ML SDV IVPUSH PRN (13:26)
[2022-09-24] MEDS ORDERED: MVI, Adult with Vitamin K 10 ML, Zinc/Copper/Manganese/Selenium 1 ML, Thiamine 200 MG i... IV ONE ×4 (14:00)
[2022-09-24] MEDS: methylPREDNISolone Sodium Succinate 125 MG/2 ML SDV IV SCH ×2 (15:03→21:07)
[2022-09-24] MEDS: Potassium Phos in 0.9 % NaCl 15 MMOL in Premix Bag 1 BAG IV SCH ×6 (15:06→21:07)
[2022-09-24] MEDS: Dextrose 5%-Lact Ringers w/KCl 1,000 ML IV SCH (18:00)
[2022-09-24] MEDS: diphenhydrAMINE 50 MG/ML SDV IVPUSH PRN ×2 (21:07→22:44)
[2022-09-25] MEDS: Potassium Phos in 0.9 % NaCl 15 MMOL in Premix Bag 1 BAG IV SCH ×2 (00:22)
[2022-09-25] MEDS: traZODone 50 MG Tab PO SCH ×2 (01:18→21:28)
[2022-09-25] MEDS: tiZANidine 2 MG Tab PO PRN ×2 (01:19→21:28)
[2022-09-25] MEDS: Dextrose 5%-Lact Ringers w/KCl 1,000 ML IV SCH ×2 (01:23→09:25)
[2022-09-25] MEDS: methylPREDNISolone Sodium Succinate 125 MG/2 ML SDV IV SCH ×2 (05:09→15:18)
[2022-09-25 05:25] LABS: ESTIMATED GFR 90 mL/min (>60)
[2022-09-25] MEDS ORDERED: fentaNYL 100 MCG/2 ML SDV ONE (07:05)
[2022-09-25] MEDS ORDERED: Propofol 200 MG/20 ML SDV ONE (07:06)
[2022-09-25] MEDS ORDERED: Lactated Ringers 1,000 ML ONE (08:12)
[2022-09-25] MEDS ORDERED: Acetaminophen 325 MG Tab PO PRN (09:30)
[2022-09-25] MEDS: Venlafaxine 75 MG Cap.ER PO SCH ×2 (10:25→21:27)
[2022-09-25] MEDS: Celecoxib 200 MG Cap PO SCH ×2 (10:25→21:27)
[2022-09-25] MEDS: Hydrochlorothiazide 12.5 MG Cap PO SCH (10:26)
[2022-09-25] MEDS ORDERED: Venlafaxine 75 MG Tab PO SCH (21:00)
[2022-09-25] MEDS ORDERED: predniSONE 20 MG Tab PO ONE (21:00)
[2022-09-26 05:12] LABS: ESTIMATED GFR 94 mL/min (>60)
[2022-09-26 07:32] VITALS: BP 132/75; PULSE 65
[2022-09-26] MEDS: Venlafaxine 75 MG Cap.ER PO SCH (09:20)
[2022-09-26] MEDS: Hydrochlorothiazide 12.5 MG Cap PO SCH (09:20)
[2022-09-26] MEDS: Celecoxib 200 MG Cap PO SCH (09:20)
[2022-09-26] MEDS ORDERED: predniSONE 20 MG Tab PO ONE (09:30)
== END 2022-09-26 11:56 | disposition still patient (30) | DRG 392 ==
LOC: JP.MS 12:48
PROVIDERS: ADMIT Surgery; ATTEND Surgery
PROC: 0D758ZZ Dilation of Esophagus, Via Natural or Artificial Opening Endoscopic (ICD-10-PCS; principal; 2022-09-25)
DX: R13.10 Dysphagia, unspecified (principal); E86.0 Dehydration; H91.90 Unspecified hearing loss, unspecified ear; H54.7 Unspecified visual loss; F41.9 Anxiety disorder, unspecified; F32.A Depression, unspecified; M54.9 Dorsalgia, unspecified; K21.9 Gastro-esophageal reflux disease without esophagitis; I10 Essential (primary) hypertension; J44.9 Chronic obstructive pulmonary disease, unspecified; Z85.3 Personal history of malignant neoplasm of breast; Z79.52 Long term (current) use of systemic steroids; Z79.899 Other long term (current) drug therapy; Z79.82 Long term (current) use of aspirin; Z85.828 Personal history of other malignant neoplasm of skin; Z86.16 Personal history of COVID-19
CPT/HCPCS: 36415; 80053; 83735; 83880; 84100; 85025; A9270-GY; J1200; J2405; J2704; J2930; J3010; J3411; J3480; J3490; J7120; J7512

== ENCOUNTER 2022-10-13 06:05 | Day surgery (SDC) | payer MEDICARE, BC ==
[2022-10-13] MEDS ORDERED: Lactated Ringers 1,000 ML IV SCH (06:30)
[2022-10-13] MEDS ORDERED: Cyanocobalamin (Vitamin B12) 1,000 MCG/ML SDV IM ONE (06:30)
[2022-10-13] MEDS ORDERED: Propofol 200 MG/20 ML SDV ONE (07:04)
[2022-10-13] MEDS ORDERED: fentaNYL 50 MCG/ML SDV ONE ×2 (07:04→07:24)
[2022-10-13] MEDS ORDERED: Glycopyrrolate 0.2 MG/ML 2 ML SDV IVPUSH ONE (07:15)
[2022-10-13] MEDS ORDERED: MVI, Adult with Vitamin K 10 ML, Thiamine 200 MG, Zinc/Copper/Manganese/Selenium 1 ML i... IV ONE ×4 (07:30)
[2022-10-13 09:13] VITALS: BP 142/96; PULSE 72
== END 2022-10-13 09:33 | disposition home or self-care (01) ==
LOC: JP.SDS 06:05
PROVIDERS: ATTEND Surgery
DX: R13.10 Dysphagia, unspecified (principal); I10 Essential (primary) hypertension; D68.51 Activated protein C resistance; Z98.890 Other specified postprocedural states; Z79.899 Other long term (current) drug therapy; Z88.5 Allergy status to narcotic agent
CPT/HCPCS: 43233; J2704; J3010; J3411; J3420; J3490; J7120

== ENCOUNTER 2022-10-30 07:41 | Day surgery (SDC) | payer MEDICARE, BC ==
[2022-10-30] MEDS ORDERED: MVI, Adult with Vitamin K 10 ML, Thiamine 100 MG, Zinc/Copper/Manganese/Selenium 1 ML i... IV ONE ×4 (08:30)
[2022-10-30] MEDS ORDERED: Propofol 200 MG/20 ML SDV ONE (08:33)
[2022-10-30] MEDS ORDERED: fentaNYL 100 MCG/2 ML SDV ONE (08:33)
[2022-10-30] MEDS ORDERED: Sodium Chloride 0.9% 500 ML ONE (10:18)
[2022-10-30 11:58] VITALS: BP 137/71; PULSE 69
== END 2022-10-30 12:05 | disposition home or self-care (01) ==
LOC: JP.SDS 07:41
PROVIDERS: ATTEND Surgery
DX: R13.10 Dysphagia, unspecified (principal); I10 Essential (primary) hypertension; M79.7 Fibromyalgia; D68.51 Activated protein C resistance; Z98.890 Other specified postprocedural states
CPT/HCPCS: 43248; J2704; J3010; J3411; J7040; J7120; J3490

== ENCOUNTER 2022-12-10 22:00 | Emergency (ER) | payer MEDICARE, BC ==
[2022-12-10] MEDS ORDERED: Ondansetron 4 MG/2 ML SDV IVPUSH ONE (23:04)
[2022-12-10] MEDS ORDERED: Sodium Chloride 0.9% 10 ML Syringe FLUSH PRN (23:04)
[2022-12-10] MEDS ORDERED: Ketorolac 30 MG/ML SDV IVPUSH ONE (23:04)
[2022-12-10 23:14] LABS: BASOPHILS ABSOLUTE AUTO 0.01 K/uL (0.00-0.10); BASOPHILS PERCENT AUTO 0.2 % (0.1-1.3); EOSINOPHILS ABSOLUTE AUTO 0.01 K/uL (0.00-0.40); EOSINOPHILS PERCENT AUTO 0.2 % (0.0-5.4); HEMOGLOBIN 13.1 g/dL (11.2-15.5); IMMATURE GRAN PERCENT AUTO 0.2 % (0.0-0.7); LYMPHOCYTES ABSOLUTE AUTO 1.11 K/uL (0.8-3.3); LYMPHOCYTES PERCENT AUTO 19.5 % (11.4-47.7); MEAN CORPUSCULAR HGB CONC 33.6 g/dL (31.6-35.5); MEAN CORPUSCULAR VOLUME 95.1 fL (81.4-99.0); MONOCYTES ABSOLUTE AUTO 0.34 K/uL (0.20-0.90); NEUTROPHILS PERCENT AUTO 73.9 % (40.0-78.1); PLATELET COUNT,PLT 221 K/uL (130-375); WHITE BLOOD CELL COUNT,WBC 5.7 K/uL (3.2-11.0)
[2022-12-10 23:15] LABS: IMMATURE GRAN ABSOLUTE AUTO 0.01 K/uL (0.00-0.23)
[2022-12-10 23:39] LABS: APPEARANCE,URINE CLOUDY (CLEAR); BILIRUBIN,URINE NEGATIVE (NEGATIVE); COLOR,URINE YELLOW (YELLOW); GLUCOSE,URINE NEGATIVE (NEGATIVE); KETONES,URINE 80 mg/dL (NEGATIVE); LEUKOCYTE ESTERASE,URINE NEGATIVE (NEGATIVE); NITRITE,URINE NEGATIVE (NEGATIVE); OCCULT BLOOD,URINE NEGATIVE (NEGATIVE); PROTEIN,URINE NEGATIVE (NEGATIVE); UROBILINOGEN,URINE 0.2 EU/dL (0.2-1.0)
[2022-12-10 23:40] LABS: A/G RATIO 1.1 (1.2-2.2); ALANINE AMINOTRANSFERASE,ALT 23 U/L (12-78); ALBUMIN 3.6 g/dL (3.4-5.0); ALKALINE PHOSPHATASE 72 U/L (46-116); ANION GAP 10.6 mmol/L (5.0-14.0); ASPARTATE AMNIOTRANSFERASE,AST 24 U/L (15-37); BILIRUBIN TOTAL 0.6 mg/dL (0.2-1.0); BLOOD UREA NITROGEN,BUN 8 mg/dL (7-18); CALCIUM 9.5 mg/dL (8.5-10.1); CARBON DIOXIDE,CO2 28 mmol/L (21-32); CHLORIDE,CL 100 mmol/L (100-108); CREATININE 0.6 mg/dL (0.6-1.0); EST CRCL DRUG DOSING (CG) 69.96 mL/min; ESTIMATED GFR 94 mL/min (>60); GLUCOSE RANDOM 145 mg/dL (74-106); LIPASE 80 U/L (73-393); POTASSIUM,K 3.6 mmol/L (3.6-5.2); SODIUM,NA 135 mmol/L (140-148)
[2022-12-10 23:47] LABS: AMORPHOUS SEDIMENT,URINE MODERATE; BACTERIA,URINE FEW; EPITHELIAL CELLS,URINE RARE; MUCUS,URINE RARE; RBC,URINE 0-5 (0-5); WBC,URINE 0-5 (0-5)
[2022-12-11] MEDS ORDERED: Iopamidol 612 MG/ML 100 ML Bottle IV STA (00:05)
[2022-12-11] MEDS ORDERED: Sodium Chloride 0.9% 50 ML IV STA (00:05)
[2022-12-11 01:30] VITALS: BP 127/79; PULSE 80
[2022-12-11] MEDS ORDERED: Acetaminophen 1,000 MG in Premix Bag 1 BAG IV ONE (01:33)
== END 2022-12-11 02:22 | disposition home or self-care (01) ==
LOC: JP.ED 22:00
DX: K59.00 Constipation, unspecified (principal); R33.9 Retention of urine, unspecified; R19.00 Intra-abdominal and pelvic swelling, mass and lump, unspecified site; I10 Essential (primary) hypertension; J44.9 Chronic obstructive pulmonary disease, unspecified; M19.90 Unspecified osteoarthritis, unspecified site; E66.9 Obesity, unspecified; Z68.26 Body mass index [BMI] 26.0-26.9, adult; Z86.16 Personal history of COVID-19; Z88.5 Allergy status to narcotic agent; Z79.899 Other long term (current) drug therapy
CPT/HCPCS: 36415; 74177; 80053; 81001; 83690; 85025; 86140; 96365; 96375; 99284; A9270; J0131; J1885; J2405; J3490; Q9967

== ENCOUNTER 2023-08-19 07:30 | Day surgery (SDC) | payer MEDICARE, BC ==
[2023-08-19] MEDS ORDERED: Propofol 200 MG/20 ML SDV ONE ×2 (07:43→11:21)
[2023-08-19] MEDS ORDERED: fentaNYL 100 MCG/2 ML SDV ONE (07:43)
[2023-08-19] MEDS: Lactated Ringers 1,000 ML IV SCH (08:18)
[2023-08-19 10:15] LABS: HEMATOCRIT 36.9 % (34.3-46.0); HEMOGLOBIN 12.4 g/dL (11.2-15.5); MEAN CORPUSCULAR HEMOGLOBIN 31.3 pg (31.6-35.5); MEAN CORPUSCULAR HGB CONC 33.6 g/dL (31.6-35.5); MEAN CORPUSCULAR VOLUME 93.2 fL (81.4-99.0); RED BLOOD CELL COUNT 3.96 M/uL (3.77-5.24)
[2023-08-19 12:17] VITALS: BP 124/69; PULSE 70
== END 2023-08-19 12:40 | disposition home or self-care (01) ==
LOC: JP.SDS 07:30
PROVIDERS: ATTEND Student in an Organized Health Care Education/Training Program
DX: Z12.11 Encounter for screening for malignant neoplasm of colon (principal); K63.5 Polyp of colon; K63.89 Other specified diseases of intestine; I10 Essential (primary) hypertension
CPT/HCPCS: 36415; 45380; 85027; J2704; J3010; J7120; 88305

== ENCOUNTER 2024-08-13 07:44 | Emergency (ER) | payer MEDICARE, BC ==
[2024-08-13 09:19] LABS: BASOPHILS PERCENT AUTO 0.3 % (0.1-1.3); EOSINOPHILS ABSOLUTE AUTO 0.06 K/uL (0.00-0.40); HEMATOCRIT 39.5 % (34.3-46.0); HEMOGLOBIN 13.2 g/dL (11.2-15.5); IMMATURE GRAN PERCENT AUTO 0.2 % (0.0-0.7); LYMPHOCYTES ABSOLUTE AUTO 1.02 K/uL (0.8-3.3); LYMPHOCYTES PERCENT AUTO 17.1 % (11.4-47.7); MEAN CORPUSCULAR HEMOGLOBIN 32.2 pg (31.6-35.5); MEAN CORPUSCULAR HGB CONC 33.4 g/dL (31.6-35.5); MEAN CORPUSCULAR VOLUME 96.3 fL (81.4-99.0); MONOCYTES ABSOLUTE AUTO 0.47 K/uL (0.20-0.90); MONOCYTES PERCENT AUTO 7.9 % (3.3-12.6); NEUTROPHILS PERCENT AUTO 73.5 % (40.0-78.1); PLATELET COUNT,PLT 220 K/uL (130-375)
[2024-08-13 09:20] LABS: BASOPHILS ABSOLUTE AUTO 0.02 K/uL (0.00-0.10); IMMATURE GRAN ABSOLUTE AUTO 0.01 K/uL (0.00-0.23)
[2024-08-13] MEDS: fentaNYL 50 MCG/ML SDV IVPUSH ONE (09:20)
[2024-08-13 09:40] LABS: A/G RATIO 1.1 (1.2-2.2); ALANINE AMINOTRANSFERASE,ALT 21 U/L (12-78); ALBUMIN 3.5 g/dL (3.4-5.0); ALKALINE PHOSPHATASE 72 U/L (46-116); ANION GAP 7.3 mmol/L (5.0-14.0); ASPARTATE AMNIOTRANSFERASE,AST 17 U/L (15-37); BILIRUBIN TOTAL 0.4 mg/dL (0.2-1.0); BLOOD UREA NITROGEN,BUN 11 mg/dL (7-18); CALCIUM 10.1 mg/dL (8.5-10.1); CARBON DIOXIDE,CO2 30 mmol/L (21-32); CHLORIDE,CL 104 mmol/L (100-108); CREATININE 0.7 mg/dL (0.6-1.0); EST CRCL DRUG DOSING (CG) 60.56 mL/min; ESTIMATED GFR 89 mL/min (>60); GLUCOSE RANDOM 96 mg/dL (74-106); POTASSIUM,K 3.8 mmol/L (3.6-5.2); PROTEIN TOTAL,TP 6.8 g/dL (6.4-8.2); SODIUM,NA 141 mmol/L (140-148)
[2024-08-13 09:52] LABS: APPEARANCE,URINE CLEAR (CLEAR); BILIRUBIN,URINE NEGATIVE (NEGATIVE); COLOR,URINE YELLOW (YELLOW); GLUCOSE,URINE NEGATIVE (NEGATIVE); KETONES,URINE NEGATIVE (NEGATIVE); LEUKOCYTE ESTERASE,URINE NEGATIVE (NEGATIVE); NITRITE,URINE NEGATIVE (NEGATIVE); OCCULT BLOOD,URINE NEGATIVE (NEGATIVE); PH,URINE 7.5 (5.0-8.0); PROTEIN,URINE NEGATIVE (NEGATIVE); UROBILINOGEN,URINE 0.2 EU/dL (0.2-1.0)
[2024-08-13 10:00] LABS: AMORPHOUS SEDIMENT,URINE MANY; BACTERIA,URINE NOT SEEN; EPITHELIAL CELLS,URINE NOT SEEN; RBC,URINE NOT SEEN (0-5); WBC,URINE NOT SEEN (0-5)
[2024-08-13] MEDS: Ketorolac 30 MG/ML SDV IVPUSH ONE (10:43)
[2024-08-13] MEDS: Gabapentin 300 MG Cap PO ONE (11:50)
[2024-08-13 12:10] VITALS: BP 122/72; PULSE 60
== END 2024-08-13 13:06 | disposition home or self-care (01) ==
LOC: JP.ED 07:44
DX: M54.14 Radiculopathy, thoracic region (principal); I10 Essential (primary) hypertension; J44.9 Chronic obstructive pulmonary disease, unspecified; E66.9 Obesity, unspecified; Z68.25 Body mass index [BMI] 25.0-25.9, adult; Z90.49 Acquired absence of other specified parts of digestive tract; Z90.710 Acquired absence of both cervix and uterus; Z88.5 Allergy status to narcotic agent; Z79.52 Long term (current) use of systemic steroids; Z79.899 Other long term (current) drug therapy
CPT/HCPCS: 36415; 74176; 80053; 81001; 85025; 85651; 86140; 96374; 96375; 99284; A9270; J1885; J3010